=== PATIENT | female | born 1965 | race Caucasian/White ===

== ENCOUNTER 2018-11-09 12:42 | Day surgery (SDC) | payer OTHER, SELFPAY ==
--- NOTE | 2018-11-09 | PATH_ITS ---
[facility] Accession Number: [id number] . 01 Material submitted: . body - GIANT VILLOUS ADENOMA @ 20 CM . 02 Diagnosis: Colon, 20 cm, Biopsy: Multiple superficial fragments of tubulovillous adenoma. No evidence of malignancy or high-grade dysplasia. V/11/10/2018 . 02 Electronically signed: . Luh Richmond MD, Pathologist NPI- [id number] . 01 Gross description: . GIANT VILLOUS ADENOMA @ 20 CM: Received in formalin is multiple fragment(s) of warren, soft tissue measuring 0.1 x 0.1 x 0.1 cm to 0.3 x 0.2 x 0.2 cm which is entirely submitted and submitted entirely in 1 cassette(s) /DMC /D[facility] . 02 Pathologist provided ICD-10: D12.6 . 02 CPT . 482932 Performed at: 01 [facility] [address] [place] [address], [place], [place] [id number] MD Eugene Rowland MD Phone: [phone] Performed at: 02 [facility] [address] [place], [place] [id number] MD Luh Richmond MD Phone: [phone]
[2018-11-09] MEDS: SODIUM CHLORIDE 0.9% 1,000 ML 200 ML IV (13:20)
[2018-11-09 13:25] VITALS: BP 117/82; PULSE 98; RESP 14; TEMP 36.7; O2SAT 96; BMI 34.6
--- NOTE | 2018-11-09 14:08 | PM.HP.1 ---
History of Present Illness Date Patient Seen: 11/09/18 Time Patient Seen: 14:08 Chief complaint: [id number] Narrative: Patient is here for screening colonoscopy is asymptomatic Patient History Medical History Asthma (Acute) Diabetes type I (Acute) History of hysterectomy (Acute) History of pneumonia (Acute ~10/2018) Hypertension (Acute) Impaired vision (Acute) Surgical History H/O neck surgery (Acute) Status post bilateral foot surgery (Acute) Social History household members: significant other Family & Social History Social History: household members significant other Meds Home Medications Medication Instructions Recorded Confirmed Type aspirin 81 mg PO SEEINSTR 11/09/18 11/09/18 History cholecalciferol (vitamin D3) 5,000 unit PO DAILY 11/09/18 11/09/18 History [Vitamin D3] estradiol 0.25 mg PO DAILY 11/09/18 11/09/18 History fish oil-dha-epa 1 cap PO DAILY 11/09/18 11/09/18 History hydrochlorothiazide 12.5 mg PO DAILY 11/09/18 11/09/18 History insulin glulisine U-100 [Apidra 11/09/18 History U-100 Insulin] lisinopril 10 mg PO DAILY 11/09/18 11/09/18 History simvastatin 20 mg PO DAILY 11/09/18 11/09/18 History Allergies Allergy/AdvReac Type Severity Reaction Status Date / Time metoclopramide [From Reglan] Allergy Severe Flopping Verified 11/09/18 13:25 around, lost consciousness Sulfa (Sulfonamide AdvReac Intermediate Nausea & Verified 11/09/18 13:25 Antibiotics) vomiting Review of Systems Review of Systems All systems reviewed & are unremarkable except as noted in HPI and below Exam Vital Signs (past 8 hours): - 11/09/18 13:25 Temperature 98.1 F Pulse Rate 98 H Respiratory Rate 14 Blood Pressure 117/82 Pulse Oximetry 96 Narrative Exam Narrative: Patient is alert and oriented Lungs are clear with no rales or wheezes Heart regular rhythm no murmur Abdomen soft nontender Rectal will be done at colonoscopy Assessment & Plan Assessment & Plan narrative: Patient is here for screening colonoscopy she fully understands and agrees the procedure no further questions
--- NOTE | 2018-11-09 14:16 | PM.OP.ENDO ---
Operative Date/Time/Diagnoses Date of procedure: 11/09/18 Time of procedure: 14:22 Procedure & Clinicians Study performed: Colonoscopy to the cecum with biopsy of giant villous tumor at 20 cm at the rectosigmoid junction this was inked and biopsied. Another 2-3 mm polyp was seen at 110 cm but I could not access it with the forceps because it was behind a fold that I disc could not maneuver past. This was photographed and appears to be a hyperplastic polyp Same procedure as scheduled: Yes Indications: alt Surgeon: Suman Rodriguez Procedure Notes SCOAP/Timeout: Was done Procedure in detail: The patient was properly identified during surgical pause she was given a total of 5 mg of Versed 150 micro g of fentanyl throughout the procedure. The flexible fiberoptic colonoscope inserted transanally to the cecum at 110 cm I encountered a very tiny 2-3 mm polyp which likely is a hyperplastic polyp I could not biopsy of because it was behind a fold and I just could not maneuver the forceps to it I did photograph it. At 20 cm from the anal verge in the junction of the sigmoid and upper rectum there is a giant villous tumor I inked this base and biopsied in multiple areas. I did not think it was suitable to attempt to remove it with the colonoscope because of its size and risk of hemorrhage and likely malignant foci. Therefore I inked the Grainger so it could be viewed surgically through the abdomen. 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 This was marked for possible resection at a later date. Recommendations: Other recommendation Plan for aftercare: Probable sigmoid resection.
[2018-11-09] MEDS: MIDAZOLAM 5 MG/5 ML VIAL IV (14:38)
[2018-11-09] MEDS: fentaNYL 250 MCG/5 ML INJ IV (14:38)
[2018-11-09 15:00] VITALS: BP 118/61; PULSE 80; RESP 11; TEMP 36.4; O2SAT 100
[2018-11-09 15:05] VITALS: BP 102/60; PULSE 75; RESP 16; RESP 8; O2SAT 100; O2SAT 99
[2018-11-09 15:10] VITALS: BP 122/76; PULSE 89; RESP 11; O2SAT 99
[2018-11-09 15:15] VITALS: BP 137/92; PULSE 97; RESP 15; O2SAT 98
[2018-11-09 15:20] VITALS: BP 115/66; PULSE 81; RESP 15; TEMP 36.9; O2SAT 98
--- NOTE | 2018-11-09 15:33 | SUR.PHASEII ---
per pt, blood sugar 216 in phase II. pt will treat as she normally does. pt asymptomatic at this time.
== END 2018-11-09 15:35 ==
LOC: ENDO 12:49
PROVIDERS: PCP Family Medicine; Visit Provider Surgery
PROC: 0DJD8ZZ Inspection of Lower Intestinal Tract, Via Natural or Artificial Opening Endoscopic (ICD-10-PCS; CPT 45378; principal; 2018-11-09 14:30)
DX: Z12.11 Encounter for screening for malignant neoplasm of colon (principal); J45.909 Unspecified asthma, uncomplicated; E10.9 Type 1 diabetes mellitus without complications; Z79.4 Long term (current) use of insulin; I10 Essential (primary) hypertension; D12.6 Benign neoplasm of colon, unspecified
CPT/HCPCS: 45380; 45381; 99152; 99153; J2250; J3010